=== PATIENT | female | born 2005 | race Caucasian/White ===

== ENCOUNTER 2024-09-09 11:18 | Emergency (ER) | payer BC | END 2024-09-09 13:14 | disposition home or self-care (01) | LOC: JP.ED 11:18 | DX: S69.91XA Unspecified injury of right wrist, hand and finger(s), initial encounter (principal); W23.1XXA Caught, crushed, jammed, or pinched between stationary objects, initial encounter | CPT/HCPCS: 73140-26-F9; 73140-F9; 81025; 99283 ==